=== PATIENT | male | born 1980 | race Caucasian/White ===

== ENCOUNTER 2024-04-27 06:47 | Day surgery (SDC) | payer OTHER, SELFPAY ==
[2024-04-27 11:45] VITALS: BP 122/78; BMI 31.3
[2024-04-27] MEDS: NORMOSOL-R/PLASMALYTE-A 1000 IV (11:55)
[2024-04-27 12:10] VITALS: BMI 31.3
[2024-04-27 15:15] VITALS: BP 122/78; BP 129/73
[2024-04-27 15:30] VITALS: BP 118/78
[2024-04-27 15:45] VITALS: BP 127/83
[2024-04-27 16:00] VITALS: BP 123/72
[2024-04-27 16:15] VITALS: BP 122/83
== END 2024-04-27 16:30 | disposition home or self-care (01) ==
LOC: SDS 06:47
PROVIDERS: ATTENDING PHYSICIAN Specialist
PROC: 0VBQ0ZZ Excision of Bilateral Vas Deferens, Open Approach (ICD-10-PCS; 2024-04-27)
DX: Z30.2 Encounter for sterilization (principal)
CPT/HCPCS: 55250; 88302